=== PATIENT | female | born 1935 | race Caucasian/White ===

== ENCOUNTER → 2018-02-07 | Outpatient (CLI) | payer MEDICARE, OTHER ==
[~2018-02-07] MED LIST: ADULT LOW DOSE81 MG PO; ASPIRIN EC325 M1 PO; ASPIRIN325 PO; ATORVASTATIN CA40 MG PO; CALCIUM 500 +1 EAC5 PO; CELEBREX 200 M200 M1 PO; CENTRUM SILVER1 EAC4 PO; COLACE100 MG PO; FERREX 150 PLU1 EAC1 PO; FISH OIL 1,2001 EAC4 PO; FOSAMAX 70 MG T70 MG PO; KLOR-CON 10 ER10 MEQ PO; KLOR-CON M2020 MEQ PO; LASIX 40 MG TAB40 MG PO; LIPITOR 20 MG T20 M1 PO; LISINOPRIL5 MG PO; LOPRESSOR25 PO; MELATONIN1 MG PO; METAMUCIL PAC1 UDPKT PO; MILK OF MA2400 MG/10 PO; MIRALAX17 GM PO; MULTIVITAMINS PO; NORVASC 5 MG TAB5 MG PO; NORVASC5 MG PO; PEPCID20 MG PO; PLAVIX 75 MG TA75 M1 PO; ROXICODONE5 M2 PO; SIMVASTATIN40 MG PO; TYLENOL325 MG PO
--- NOTE | 2018-02-07 16:56 | 2DMMODE ---
[place] [address] 2 D/M-MODE ECHOCARDIOGRAM Name: WANDA ISAACS Room: [facility]#: [id number] Admission: 02/07/18 Attend Phys: Maria Fernanda Beckwith, Discharge: Date of : 33 Date of Service: 02/07/18 1656 Report #: [id number] THIS REPORT FOR: //name// APPROVED REPORT Study performed: 02/07/2018 13:12:23 EXAM: Comprehensive 2D, Doppler, and color-flow Echocardiogram Patient Location: Out-Patient BSA: 1.94 HR: 66 bpm BP: 148/88 mmHg Other Information Study Quality: Good Indications Cardiomyopathy 2D Dimensions LVEF(%): 54.42 (>50%) IVSd: 11.84 (7-11mm) LVOT Diam: 19.23 (18-24mm) LVDd: 47.55 mm PWd: 10.29 (7-11mm) Ascending Ao: 30.50 (22-36mm) LVDs: 34.15 (25-40mm) Aortic Root: 30.41 mm Leon's LVEF: 54.42 % Volumes Left Atrial Volume (Systole) LA ESV Index: 28.60 mL/m2 Aortic Valve AoV Peak Bhavesh.: 1.14 m/s AO Peak Gr.: 5.23 mmHg LVOT Max P.41 mmHg AO Mean Gr.: 3.14 mmHg LVOT Mean P.13 mmHg LVOT Max V: 0.78 m/s AO V2 VTI: 27.01 cm LVOT Mean V: 0.49 m/s ANTELMO (VTI): 1.92 cm2 LVOT V1 VTI: 17.90 cm Mitral Valve E/A Ratio: 0.75 MV Decel. Time: 190.62 ms MV E Max Bhavesh.: 0.63 m/[place] [address] 2 D/M-MODE ECHOCARDIOGRAM Name: WANDA ISAACS Room: [facility]#: [id number] Admission: 02/07/18 Attend Phys: Maria Fernanda Beckwith, Discharge: Date of : 33 Date of Service: 02/07/18 1656 Report #: [id number] PHT: 55.28 ms MVA (PHT): 3.98 cm2 TDI E/Lateral E': 5.73 E/Medial E': 7.88 Medial E' Bhavesh.: 0.08 m/s Lateral E' Bhavesh.: 0.11 m/s Pulmonary Valve PV Peak Bhavesh.: 0.98 m/s PV Peak Gr.: 3.84 mmHg Tricuspid Valve RAP Estimate: 5.00 mmHg TR Peak Gr.: 29.63 mmHg RVSP: 34.63 mmHg PA Pressure: 34.63 mmHg Left Ventricle The left ventricle is normal size. There is normal LV segmental wall motion. There is normal left ventricular wall thickness. Left ventricular systolic function is borderline. LVEF is 50-55%. Grade I - abnormal relaxation pattern. Right Ventricle The right ventricle is normal size. The right ventricular systolic function is normal. Atria The left atrium size is normal. The right atrium size is normal. Aortic Valve Mild aortic valve sclerosis. Trace aortic regurgitation. There is no aortic valvular stenosis. Mitral Valve There is mitral annular calcification. Mild mitral regurgitation. No evidence of mitral valve stenosis. Tricuspid Valve The tricuspid valve is normal in structure. Mild tricuspid regurgitation. Pulmonic Valve The pulmonary valve is normal in structure. Trace [place] [address] 2 D/M-MODE ECHOCARDIOGRAM Name: WANDA ISAACS Room: [facility]#: [id number] Admission: 02/07/18 Attend Phys: Maria Fernanda Beckwith, Discharge: Date of : 33 Date of Service: 02/07/18 1656 Report #: [id number] Great Vessels The aortic root is normal in size. IVC is normal in size and collapses with >50% inspiration Pericardium There is no pericardial effusion. <Conclusion> The left ventricle is normal size. There is normal left ventricular wall thickness. Left ventricular systolic function is borderline. LVEF is 50-55%. Grade I - abnormal relaxation pattern. The right ventricle is normal size. The left atrium size is normal. Mild aortic valve sclerosis. Trace aortic regurgitation. There is no aortic valvular stenosis. There is mitral annular calcification. Mild mitral regurgitation. The tricuspid valve is normal in structure. Mild tricuspid regurgitation. IVC is normal in size and collapses with >50% inspiration There is no pericardial effusion. There is normal LV segmental wall motion. <ELECTRONICALLY SIGNED> By: Jacob Hsieh MD, FACC 02/07/18 1656 55 55 Jacob Hsieh MD, FACC /INF
== END ==
LOC: M.CRD 12:53
DX: I08.1 Rheumatic disorders of both mitral and tricuspid valves (principal); I42.9 Cardiomyopathy, unspecified; I25.10 Atherosclerotic heart disease of native coronary artery without angina pectoris; I10 Essential (primary) hypertension; E78.5 Hyperlipidemia, unspecified; Z95.1 Presence of aortocoronary bypass graft

== ENCOUNTER → 2019-04-18 | Outpatient (CLI) | payer MEDICARE, OTHER | LOC: M.ULTRA 12:51 | DX: I73.9 Peripheral vascular disease, unspecified (principal); I70.8 Atherosclerosis of other arteries; I25.10 Atherosclerotic heart disease of native coronary artery without angina pectoris; I10 Essential (primary) hypertension ==

== ENCOUNTER → 2019-06-02 | Outpatient (CLI) | payer MEDICARE, OTHER ==
[2019-06-02 14:00] LABS: HEMATOCRIT 38.9 % (37.0-47.0); HEMOGLOBIN 13.6 gm/dL (12.0-15.0)
== END ==
LOC: M.LAB 13:28
PROVIDERS: Surgery Vascular Surgery
DX: I70.213 Atherosclerosis of native arteries of extremities with intermittent claudication, bilateral legs (principal)

== ENCOUNTER 2020-09-17 11:35 | Emergency (ER) | payer MEDICARE, OTHER ==
[~2020-09-17] VITALS: Ht 162.6 cm; Wt 81.7 kg
[2020-09-17 12:15] LABS: URINE BILIRUBIN NEGATIVE (Negative); URINE BLOOD NEGATIVE (Negative); URINE CLARITY CLEAR; URINE COLOR YELLOW; URINE GLUCOSE-RANDOM NEGATIVE (Negative); URINE KETONES NEGATIVE (Negative); URINE LEUKOCYTES NEGATIVE (Negative); URINE NITRITE NEGATIVE (Negative); URINE PROTEIN NEGATIVE (Negative); URINE SPECIFIC GRAVITY <= 1.005 (1.005-1.030); URINE UROBILINOGEN 0.2 E.U./dl (0.2-1.0)
[2020-09-17 12:29] LABS: HEMATOCRIT 38.3 % (37.0-47.0); MCH 31.9 pg (26.0-34.0); MCV 93.6 fL (80.0-100.0); MPV 7.7 fl. (7.2-11.1); RBC 4.09 mil/uL (4.20-5.00); RDW-CV 13.3 % (10.5-14.5); WBC 4.9 thou/uL (4.0-11.0)
[2020-09-17 12:33] LABS: CALCIUM 9.7 mg/dL (8.5-10.1); CREATININE 1.1 mg/dL (0.6-1.3); POTASSIUM 4.1 mmol/L (3.5-5.1)
[2020-09-17 12:55] VITALS: BP 147/88
--- NOTE | 2020-09-17 16:22 | EKG ---
[place] [address] ELECTROCARDIOGRAM REPORT Name: WANDA ISAACS Room: [facility]#: [id number] Admission: 09/17/20 Attend Phys: Discharge: 09/17/20 Date of : 33 Date of Service: 09/17/20 1209 Report #: [id number] THIS REPORT FOR: //name// [facility] ED Test Date: 2020-09-17 Test Time: 12:09:27 Pat Name: WANDA ISAACS Department: Room: Gender: F Project Management Engineer: CCD : [id number] Requested By: Hayes Rodriguez Order Number: [id number] MD: Darrell Colbert Measurements Intervals [place] Rate: 65 P: 24 [place]: 261 QRS: 12 QRSD: 160 T: -16 QT: 425 QTc: 442 Interpretive Statements Sinus rhythm Prolonged [place] interval Right bundle branch block Compared to ECG 03/26/2017 09:38:51 Ventricular premature complex(es) no longer present Electronically Signed On 09-17-2020 16:22:29 [employer] by Darrell Colbert [email or web address] <ELECTRONICALLY SIGNED> By: Darrell Colbert MD, [facility] 09/17/20 1622 1209 1209 Darrell Colbert MD, [facility] /EPI
== END 2020-09-17 12:56 | disposition home or self-care (01) ==
LOC: M.ERS 11:35
PROVIDERS: Emergency Medicine
DX: I10 Essential (primary) hypertension (principal); Z86.73 Personal history of transient ischemic attack (TIA), and cerebral infarction without residual deficits